=== PATIENT | female | born 1960 | race Caucasian/White ===

== ENCOUNTER 2019-10-26 16:01 | Emergency (ER) | payer BC ==
[~2019-10-26] VITALS: Ht 152.4 cm; Wt 59.9 kg
[2019-10-26] MEDS ORDERED: DOXYCYCLINE HY100 MG PO (16:15)
[2019-10-26] MEDS ORDERED: FLUTICASONE PRO16 GM NAS (16:16)
[2019-10-26] MEDS ORDERED: LOSARTAN POTASS25 MG PO (16:16)
[2019-10-26] MEDS ORDERED: AMOX TR-K CLV1 EAC1 PO (16:16)
[2019-10-26] MEDS ORDERED: EPINEPHRIN0.3 MG/0.3 IM (16:16)
[2019-10-26] MEDS ORDERED: BUPROPION HCL200 MG PO (16:17)
[2019-10-26] MEDS ORDERED: LEVOTHYROXINE100 MCG PO (16:17)
[2019-10-26] MEDS ORDERED: BUSPIRONE HCL15 MG PO (16:17)
== END 2019-10-26 17:58 | disposition home or self-care (01) ==
LOC: ED 16:01
DX: J32.0 Chronic maxillary sinusitis (principal); I10 Essential (primary) hypertension; F17.200 Nicotine dependence, unspecified, uncomplicated; Z79.899 Other long term (current) drug therapy
CPT/HCPCS: 99283